=== PATIENT | male | born 1965 | race Caucasian/White ===

== ENCOUNTER 2016-09-06 09:30 | Outpatient (RCR) | payer OTHER | END 2016-09-16 | disposition still patient (30) | LOC: WSPT | DX: Z47.89 Encounter for other orthopedic aftercare (principal); M25.862 Other specified joint disorders, left knee | CPT/HCPCS: G0283-GP ==

== ENCOUNTER 2016-10-07 15:52 | Outpatient (RCR) | payer OTHER | END 2016-10-07 17:00 | disposition home or self-care (01) | LOC: WSC 15:52 | DX: Z01.818 Encounter for other preprocedural examination (principal); M25.811 Other specified joint disorders, right shoulder ==

== ENCOUNTER 2017-01-10 13:30 | Outpatient (RCR) | payer SELFPAY | END 2017-01-14 | disposition home or self-care (01) | LOC: WSC | DX: M75.21 Bicipital tendinitis, right shoulder (principal) | CPT/HCPCS: G0283-GP ==